=== PATIENT | female | born 1980 | race Caucasian/White ===

== ENCOUNTER 2016-08-05 | Emergency (ER) | payer MEDICARE ==
[2016-08-05 06:53] LABS: HEMOGLOBIN 12.8 gm/dl (12.3-15.3); RED BLOOD COUNT 4.64 M/UL (4.00-5.10)
[2016-08-05 07:28] LABS: BUN/CREATININE RATIO 11 (0-10)
== END 2016-08-05 12:40 | disposition home or self-care (01) ==
PROVIDERS: Specialist/Technologist Athletic Trainer
DX: R07.9 Chest pain, unspecified (principal); I10 Essential (primary) hypertension; F41.9 Anxiety disorder, unspecified; E66.01 Morbid (severe) obesity due to excess calories; Z88.2 Allergy status to sulfonamides; Z79.899 Other long term (current) drug therapy
CPT/HCPCS: 36415; 71010; 80053; 82550; 82553; 83874; 84484; 84703; 85025; 85379; 93005; 99285